=== PATIENT | female | born 1960 | race Caucasian/White ===

== ENCOUNTER 2016-06-24 04:59 | Emergency (ER) | payer OTHER ==
[2016-06-24 05:32] LABS: URINE BILIRUBIN NEGATIVE (NEGATIVE); URINE BLOOD NEGATIVE (NEGATIVE); URINE GLUCOSE (UA) NORMAL (NORMAL); URINE KETONE NEGATIVE (NEGATIVE); URINE LEUKOCYTE ESTERASE TRACE (NEGATIVE); URINE NITRATE NEGATIVE (NEGATIVE); URINE PROTEIN TRACE (NEGATIVE); UROBILINOGEN NORMAL mg/dL (<1.0)
[2016-06-24 05:58] LABS: BASO % 0.2 % (0.1-1.2); EOS % 0.2 % (0.7-5.8); GRAN % 35.8 % (34.0-71.1); HEMATOCRIT 37.8 % (34-45); LYMPH # 3.1 10_X3_uL (1.2-3.7); LYMPH % 54.5 % (19.3-51.7); MEAN CORPUSCULAR HEMOGLOBIN 26.7 pg (27.0-33.0); MEAN CORPUSCULAR HGB CONC 31.7 g/dL (32.0-36.0); MEAN CORPUSCULAR VOLUME 84.2 fL (79-95); MEAN PLATELET VOLUME 10.4 fl (7.5-11.5); MONO # 0.5 10_X3_uL (0.2-0.9); MONO % 9.3 % (4.7-12.5); PLATELET COUNT 196 x10_3/uL (182-369); RED BLOOD COUNT 4.49 x10_6/uL (3.9-5.2); RED CELL DISTRIBUTION WIDTH 15.6 % (11.7-14.4); WHITE BLOOD COUNT 5.6 x10_3/uL (4.0-10.0)
[2016-06-24 06:12] LABS: ALBUMIN 3.6 gm/dL (3.4-5.0); ALKALINE PHOSPHATASE 61 U/L (50-136); ALT/SGPT 18 U/L (3.5-33.9); AST/SGOT 25 U/L (7.04-26.96); BILIRUBIN,TOTAL 0.24 mg/dL (0.0-1.0); BLOOD UREA NITROGEN 18 mg/dL (7-18); CALCIUM 8.7 mg/dL (8.7-10.7); CARBON DIOXIDE 26 mmol/L (21-32); GLUCOSE,RANDOM 103 mg/dL (70-99); POTASSIUM 5.6 mmol/L (3.5-5.1); SODIUM 144 mmol/L (136-145); TOTAL PROTEIN 6.7 gm/dL (6.4-8.2)
[2016-06-24 06:24] LABS: URINE BACTERIA TRACE (NONE SEEN); URINE RBC 0-5 /[HPF] (0-2); URINE SQUAMOUS EPITHELIAL CELL 0-10 /[HPF] (NONE SEEN); URINE WBC 0-5 /[HPF] (0-5); URINE YEAST FEW (NONE SEEN)
== END 2016-06-24 07:23 | disposition home or self-care (01) ==
LOC: ER 04:59
PROVIDERS: General Practice
DX: N20.0 Calculus of kidney (principal); K59.00 Constipation, unspecified; R30.0 Dysuria; E66.01 Morbid (severe) obesity due to excess calories; Z87.440 Personal history of urinary (tract) infections; Z79.899 Other long term (current) drug therapy; Z79.891 Long term (current) use of opiate analgesic
CPT/HCPCS: 36415; 80053; 81001; 85025; 99070; 99284-25